=== PATIENT | female | born 1940 | race Caucasian/White ===

== ENCOUNTER 2024-08-26 15:02 | Outpatient (AMB) | payer MEDICARE, SELFPAY ==
[2024-08-26 15:20] VITALS: BP 160/77; PULSE 92; RESP 19; TEMP 36.4; O2SAT 93; BMI 33.1
--- NOTE | 2024-08-26 15:20 | RHCORTHONT_ITS ---
Vital signs 08/26/24 15:20 Height 1.63 m Height Method Stated Weight 87.543 kg Weight Measurement Method Standing Scale BMI 33.1 BP 160/77 H Blood Pressure Source Automatic Cuff Blood Pressure Location Right Upper Arm Position Sitting Respiration 19 Pulse 92 Pulse Source Monitor Temp 97.5 F Temp Source Temporal Artery Scan Pulse Oximetry (%) 93 L Oxygen Delivery Method Room Air Med/Allergies Allergies & Medications Allergies codeine Allergy (Verified 08/26/24 15:21) Medication Reconciliation Bifidobacterium infantis 10.5 mg (10 million cell) chewable tablet (Align) mg PO 06/17/24 [History Confirmed 08/26/24] amlodipine 5 mg tablet 5 mg PO QDAY 06/17/24 [History Confirmed 08/26/24] cetirizine 10 mg tablet (All Day Allergy (cetirizine)) 10 mg PO QDAY PRN 06/17/24 [History Confirmed 08/26/24] cranberry 500 mg capsule 500 mg PO BID 06/17/24 [History Confirmed 08/26/24] lisinopril 40 mg tablet 40 mg PO QDAY 06/17/24 [History Confirmed 08/26/24] potassium chloride 10 mEq capsule,extended release 10 meq PO QDAY 06/17/24 [History Confirmed 08/26/24] Exam Exam Patient is in no acute distress and is cooperative with the examination today. Breathing is nonlabored. In no respiratory distress. Patient has no paraspinal tenderness. Spinal deformity [cannot] be appreciated. The gait of the patient is [nonantalgic] Bilateral extremities were evaluated and demonstrates sensation intact to light touch. Palpable pedal pulses are present. No significant edema is present. Bilateral knees were examined and the patient has full strength and range of motion.. The right hip was examined. Patient was able to flex to 90 degrees, adduct to 30 degrees, abduct to 40 degrees, internally rotate to 20 degrees, and externally rotate to 20 degrees. Patient has a negative logroll. Stinchfield is negative. The patient is nontender diffusely to touch. The left hip was examined. Patient was able to flex to [90] degrees, adduct to [30] degrees, abduct to [40] degrees, internally rotate to [20] degrees, and externally rotate to [20] degrees. Patient has mild pain with logroll.The stinchfield is [negative]. X-rays from [facility] from February 2024 demonstrates mild left hip arthritis. There is an MRI which demonstrates some subchondral sclerosis and edema. This is consistent with avascular necrosis. Assessment and Plan Problem List (1) Spinal stenosis: Status: Acute (2) Arthritis of left hip: Status: Acute Plan: Patient is a pleasant 84-year-old female with mild left hip arthritis with evidence of avascular Necrosis on MRI. The patient also has a history of spinal issues. She has a mild of positive logroll consistent with possible left hip pathology. Patient states description of the symptoms to me sounds like radicular symptoms. She is numbness and tingling going down both legs more so on the left. She also has a positive shopping cart sign. She only received partial relief with the cortisone injection and still has pain rating down her leg. I discussed with her that this is likely multifactorial. I discussed with her that we can do a total hip replacement but a lot of her pain will not go away. I would like for her to get a spine evaluation first especially given the recent MRI findings Advanced Care Planning Discussion Advance care planning discussed with:: patient Office Procedures GNS Level of Care Nursing/Assessment Patient Status: Established Patient Nursing Assessment/Reassesment: Medication Reconciliation, Update PMH in EMR and Vital Signs Coordination of Care: Complex Care and Chronic Disease 1-5, Education Complex Pt/Fam, Consent,records obtained, informed consent, Results/Orders obtained and Staff clarify orders Special Needs: Language special needs Established Patient Charge Established Patient Point Assignment: 95 Established Patient Point Charge: EP Level 3 (80-115) MA Intake Visit Data Collection New Patient or Established: Established Patient (seen at [facility] within 3 years) Reason for Visit:: F/U MRI Seen by Clinical Staff ONLY (RN/MA): No Verbal consent obtained for Telemed visit?: No Wildlife Photographer Required: No PCP or OBGYN visit in last 3 months: Yes Hx Now: No Do You Feel Safe at Home: Yes Authorities Contacted: N/A Questionairres Past Medical History Past Medical History Have you ever been diagnosed with any of the following: Cardiology Problems Hypertension: Yes Respiratory Problems Tuberculosis: No Smoking: No Smoking Cessation Counseling: No Smoking Exposure: No Tobacco Use: No Surgical History Total Hip Replacement: Yes Hysterectomy: Yes Subjective Visit Visit for: follow up visit Immunization / Flu Flu Vaccine in the Last 12 Months: Yes Flu Vaccine Exclusion Criteria: No Exclusion Criteria History of Present Illness Chief complaint: F/U MRI RESULTS Patient is here for her MRI results of her spine. He does demonstrate significant stenosis at L5-S1 particularly and foraminal stenosis. She also has a CT scan of her abdomen and her hip is able to be viewed. There is left hip arthritis Personal History Red flag PMH: none Pain Pain level (0-10): 5 Pain duration: CONSTANT Pain location: inside (medial) Pain quality: sharp and aching Ambulatory data Ambulatory device: walker Treatments Improvement with previous injections: No Improvement with PT: No Improvement with NSAIDS: n/a Review of Systems Review of Systems: All systems negative unless otherwise noted in HPI.
== END 2024-08-26 16:04 | disposition home or self-care (01) ==
LOC: HODSRG 15:02
PROVIDERS: PCP Orthopaedic Surgery; Referring Provider Orthopaedic Surgery; Supervising Provider Orthopaedic Surgery Adult Reconstructive Orthopaedic Surgery; Visit Provider Orthopaedic Surgery Adult Reconstructive Orthopaedic Surgery
DX: M48.07 Spinal stenosis, lumbosacral region (principal); M16.12 Unilateral primary osteoarthritis, left hip; M87.88 Other osteonecrosis, other site
CPT/HCPCS: 99213; G0463